=== PATIENT | female | born 1980 | race Caucasian/White ===

== ENCOUNTER → 2020-10-13 | Outpatient (CLI) | payer OTHER ==
[~2020-10-13] MED LIST: OMNIPAQUE 350 MG/ML, 100ML BOTTLE ONE
== END | disposition home or self-care (01) ==
LOC: CFH 13:17
PROVIDERS: ATTEND Internal Medicine Gastroenterology
DX: N83.202 Unspecified ovarian cyst, left side (principal)
CPT/HCPCS: 74177; Q9967